=== PATIENT | male | born 1990 | race Caucasian/White ===

== ENCOUNTER → 2018-10-26 | Outpatient (CLI) | payer BC ==
--- NOTE | 2018-10-26 15:23 | KCIC ---
TESTICULAR/SCROTUM: 10/26/2018 10:30 AM INDICATION: 28 years old Male. Palpable abnormality on the left testicle. COMPARISON: None. FINDINGS: Grayscale, color Doppler and spectral waveform analysis were utilized. Right: Testicle: Normal in echotexture without focal lesion. Size: 5.4 x 3.2 x 2.7 cm. Flow: Normal color Doppler flow pattern. Epididymis: Normal in size and echotexture without focal lesion. Hydrocele: None. Varicocele: None. Left: Testicle: Normal in echotexture without focal lesion. Size: 5.7 x 3.4 x 2.9 cm. Flow: Normal color Doppler flow pattern. Epididymis: In the area of palpable abnormality there is a 1.1 x 1.0 x 0.8 cm epididymal cyst which appears simple. Hydrocele: None. Varicocele: None. IMPRESSION: 1. Perfusion is noted to the testicles bilaterally at the time of imaging. 2. Palpable abnormality corresponds with simple left epididymal cyst measuring 1.1 cm. Electronically signed by: Jennyfer Gaston MD (10/26/2018 3:20 PM) [id number]
== END | disposition home or self-care (01) ==
LOC: KCIC US 10:16
PROVIDERS: ATTEND Family Medicine
DX: N50.3 Cyst of epididymis (principal)
CPT/HCPCS: 76870